=== PATIENT | male | born 1980 ===

== ENCOUNTER 2021-01-10 06:50 | Day surgery (SDC) | payer OTHER ==
[~2021-01-10 06:50] MED LIST: RESTORIL15 M1 PO
[2021-01-10] MEDS ORDERED: PERCOCET 5-3251 EACH PO (17:32)
== END 2021-01-10 21:00 | disposition home or self-care (01) ==
LOC: CIR.AMB 06:50
PROVIDERS: ATTEND Surgery
DX: N52.8 Other male erectile dysfunction (principal); N99.72 Accidental puncture and laceration of a genitourinary system organ or structure during other procedure; N50.89 Other specified disorders of the male genital organs; Z20.822 Contact with and (suspected) exposure to COVID-19
CPT/HCPCS: 54405; 53505; 55180; C1813